=== PATIENT | male | born 1940 | race Caucasian/White ===

== ENCOUNTER → 2023-05-01 06:03 | Outpatient (REF) | payer OTHER, SELFPAY ==
[2023-05-01 10:00] LABS: % Basophils 0.5 % (0-2); % Eosinophils 3.7 % (0-6); % Immature Granulocytes 0.2 % (0-0.5); % Lymphocytes 44.6 % (20.5-51.1); % Monocytes 10.4 % (1.7-9.3); % Neutrophils 40.6 % (42.2-75.2); Absolute Eosinophils 0.2 10^3/uL (0-0.7); Absolute Lymphocytes 2.5 10^3/uL (1.2-3.4); Absolute Monocytes 0.6 10^3/uL (0.1-0.6); Absolute Neutrophils 2.3 10^3/uL (1.4-6.5); Mean Corp Hgb Conc. 34.1 g/dL (33.0-37.0); Mean Corpuscular Hgb 29.4 pg (27.0-31.0); Mean Corpuscular Volume 86.1 fL (80.0-94.0); Mean Platelet Volume 10.9 fL (7.4-10.4); Nucleated Red Blood Cells % 0 % (-); Platelet Count 137 10^3/uL (130-400); Red Blood Cell Count 4.76 10^6/uL (4.70-6.10); Red Cell Dist. Width 13.6 % (11.5-14.5); White Blood Cell Count 5.7 10^3/uL (4.8-10.8)
[2023-05-01 10:15] LABS: ALT (SGPT) 18 U/L (0-50); AST (SGOT) 30 U/L (17-59); Albumin 4.2 g/dl (3.5-5.0); Alkaline Phosphatase 56 U/L (38-126); Blood Urea Nitrogen 22 mg/dl (9-20); Calcium 9.4 mg/dl (8.4-10.2); Carbon Dioxide 31 mmol/L (22-30); Chloride 100 mmol/L (98-107); Glucose 105 mg/dl (70-99); INR 1.05; PT 13.6 Sec (11.4-14.6); Potassium 4.4 mmol/L (3.5-5.1); Sodium 137 mmol/L (135-145); Total Bilirubin 1.1 mg/dl (0.2-1.3); Total Protein 6.9 g/dl (6.3-8.2); eGFR > 60.00
[2023-05-01 10:16] LABS: APTT 32.1 Sec (23.4-35.0)
== END ==
LOC: HWLAB 06:03
PROVIDERS: ATTENDING PHYSICIAN Specialist; FAMILY PHYSICIAN Internal Medicine
DX: Z85.51 Personal history of malignant neoplasm of bladder (principal)
CPT/HCPCS: 36415; 80053; 85025; 85610; 85730

== ENCOUNTER 2023-05-16 06:15 | Day surgery (SDC) | payer OTHER, SELFPAY ==
[2023-05-16] VITALS (16 sets, daily range): BP systolic 111–170; BP diastolic 69–99; BMI 23.3
[2023-05-16] MEDS: NORMOSOL-R 1000 IV (07:00)
[2023-05-16 07:02] LABS: Glucose - Point of Care 116 mg/dl (70-99)
--- NOTE | 2023-05-16 08:45 | W.PN.ADMIT ---
Progress Note - Admit
Progress Note - Admit
pt s/p TURP
admit for CBI
[2023-05-16 09:03] LABS: Glucose - Point of Care 116 mg/dl (70-99)
[2023-05-16 09:38] LABS: Hematocrit 39.1 % (39.0-52.0); Hemoglobin 13.5 g/dL (13.0-18.0); Mean Corp Hgb Conc. 34.5 g/dL (33.0-37.0); Mean Corpuscular Hgb 29.2 pg (27.0-31.0); Mean Corpuscular Volume 84.6 fL (80.0-94.0); Mean Platelet Volume 10.3 fL (7.4-10.4); Platelet Count 128 10^3/uL (130-400); Red Blood Cell Count 4.62 10^6/uL (4.70-6.10); Red Cell Dist. Width 13.6 % (11.5-14.5); White Blood Cell Count 4.8 10^3/uL (4.8-10.8)
[2023-05-16 09:48] LABS: Blood Urea Nitrogen 23 mg/dl (9-20); Calcium 8.3 mg/dl (8.4-10.2); Carbon Dioxide 27 mmol/L (22-30); Chloride 102 mmol/L (98-107); Estimated Creatinine Clearance 86 ml/min; Glucose 119 mg/dl (70-99); Potassium 4.2 mmol/L (3.5-5.1); Sodium 133 mmol/L (135-145); eGFR > 60.00
[2023-05-16] MEDS: LASIX 20 MG IV (10:32)
[2023-05-16] MEDS: NSS with KCL 20 MEQ 1000 IV ×2 (11:07→21:15)
--- NOTE | 2023-05-16 12:06 | PTCARENOTE ---
Pt received from PACU s/p TURP. CBI infusing through [address] coleman cath. Traction to be released at 1500. Coleman bag draining clear urine. VSS. IVF infusing per order. Pt without complaint at this time. Assessment documented.
[2023-05-16] MEDS: GLUCOPHAGE XR EXTENDED RELEASE 500 MG PO (17:18)
[2023-05-16 17:19] LABS: Glucose - Point of Care 161 mg/dl (70-99)
[2023-05-16] MEDS: FLOMAX 0.400000000000000022 MG PO (20:03)
[2023-05-16] MEDS: COLACE 100 MG PO (20:03)
[2023-05-16] MEDS: VIBRAMYCIN 100 MG PO (20:03)
[2023-05-16] MEDS: LIPITOR 40 MG PO (21:16)
[2023-05-17 02:52] VITALS: BP 106/67
[2023-05-17 05:13] LABS: Hemoglobin 13.4 g/dL (13.0-18.0); Mean Corp Hgb Conc. 33.5 g/dL (33.0-37.0); Mean Corpuscular Hgb 28.9 pg (27.0-31.0); Mean Corpuscular Volume 86.2 fL (80.0-94.0); Mean Platelet Volume 10.9 fL (7.4-10.4); Platelet Count 143 10^3/uL (130-400); Red Blood Cell Count 4.64 10^6/uL (4.70-6.10); Red Cell Dist. Width 13.8 % (11.5-14.5); White Blood Cell Count 10.9 10^3/uL (4.8-10.8)
[2023-05-17 05:45] LABS: Blood Urea Nitrogen 17 mg/dl (9-20); Calcium 8.7 mg/dl (8.4-10.2); Carbon Dioxide 25 mmol/L (22-30); Chloride 103 mmol/L (98-107); Estimated Creatinine Clearance 86 ml/min; Glucose 99 mg/dl (70-99); Potassium 3.9 mmol/L (3.5-5.1); Sodium 133 mmol/L (135-145); eGFR > 60.00
[2023-05-17] MEDS: NSS with KCL 20 MEQ 1000 IV (06:27)
--- NOTE | 2023-05-17 07:37 | W.PN.URO.CBU ---
Today's Communication / Plan
-
routine post TURP care
Assessment / Plan
-
s/p TURP
persistent hematuria
UOOB/regular diet
wean cbi as able
plan will be for discharge with coleman and outpt TTOV next week
Diagnosis
-
Date of Service: May 17, 2023
-
Patient Diagnosis:
bph
Post Op Day:
s/p TURP 05/15
Subjective
-
pt with mild cath bother
urine has generally been clear- became bloody when he got UOOB this am
now moderate rate cbi- clear to light pink
labs stable with mild hyponateremia
Objective
-
Vital Signs
Temp Pulse Resp BP Pulse Ox
97.7 F 73 18 106/67 94
05/17/23 02:52 05/17/23 02:52 05/17/23 02:52 05/17/23 02:52 05/17/23 02:52
Intake and Output
05/16/23 05/17/23 05/18/23
06:59 06:59 06:59
Intake Total 3660 / 3660
Output Total 3850 / 3850
Balance -190 / -190
Intake:
Oral fluids 2160 / 2160
IV fluids (Total) 300 / 300
Normosal 300 / 300
IV piggybacks 1200 / 1200
Output:
True Urine Output from CBI 3850 / 3850
Laboratory Results
05/17/23 03:56
05/17/23 03:56
Review of Systems
-
Constitutional: Fatigue
Respiratory: No Symptoms
Cardiac: No Symptoms
Abdomen/GI: No Symptoms
: Other (coleman bother)
Physical Exam
-
General - well developed, well nourished, no acute distress
Abdomen - soft, non-tender
Genitalia - normal- coleman in place
[2023-05-17 07:50] VITALS: BP 136/64
[2023-05-17] MEDS: FLOMAX 0.400000000000000022 MG PO ×2 (08:09→20:04)
[2023-05-17] MEDS: TYLENOL 650 MG PO (08:09)
[2023-05-17] MEDS: VITAMIN C 500 MG PO (08:09)
[2023-05-17] MEDS: PROSCAR 5 MG PO (08:09)
[2023-05-17] MEDS: THERAGRAN 1 TABLET PO (08:09)
[2023-05-17] MEDS: COLACE 100 MG PO (08:10)
[2023-05-17] MEDS: ZESTRIL 10 MG PO (08:10)
[2023-05-17] MEDS: VIBRAMYCIN 100 MG PO ×2 (08:15→20:04)
[2023-05-17 11:40] VITALS: BP 127/71
--- NOTE | 2023-05-17 12:43 | VNURNOTE ---
Home Health Liaison met with patient at 1030 to discuss [facility] nurse visits, schedule and homebound status. Patient is agreeable and understands that visits at home will be 2-3 x per week to assess and teach medical management and catheter care.
[facility] brochure provided with contact information. Patient is aware that [facility] will contact him for start of care in 1-2 days after discharge from .
[facility] referral completed by CM in [facility].
[2023-05-17 15:50] VITALS: BP 154/84
[2023-05-17] MEDS: GLUCOPHAGE XR EXTENDED RELEASE 500 MG PO (17:24)
[2023-05-17] MEDS: LIPITOR 40 MG PO (20:04)
[2023-05-17] MEDS: COLACE PO (20:05)
[2023-05-17 23:35] VITALS: BP 124/82
--- NOTE | 2023-05-18 06:24 | PTCARENOTE ---
Pt tolerating CBI. Urine is clear this morning, no blood, clots or sediment observed. Pt hoping to be discharged today. Denies any pain. Up ad jeanette independently. Up in the chair this morning. Call ivey within reach. Pt calls appropriately.
[2023-05-18 07:15] VITALS: BP 97/57
--- NOTE | 2023-05-18 07:42 | CM ---
met with patient at bedside.patient lives with his in house with 2 pvaan,his bed and bath is on the second level,e amb i and is i with his adl's.patient sees dr tate for his pcp and he uses [facility] in [facility] for his pharmacy.he has
had a vn through [facility] in past but denies ip rehab in past.
patient is sp turp,his cbi is now clear.patient is hoping to be dc home today with coleman catheter.[facility] following patient.
Plan : home with [facility].
--- NOTE | 2023-05-18 08:35 | W.PN.URO.CBU ---
Today's Communication / Plan
-
off cbi
home if urine remains clear
Assessment / Plan
-
s/p TURP
urine now clear
stop cbi and observe until this afternoon- if urine remains clear- home with coleman and removal on monday
Diagnosis
-
Date of Service: May 18, 2023
-
Patient Diagnosis:
bph
Post Op Day:
s/p TURP 05/15
Subjective
-
pt up walking
urine yellow
Objective
-
Vital Signs
Temp Pulse Resp BP Pulse Ox
99.4 F 80 18 97/57 98
05/18/23 07:15 05/18/23 07:15 05/18/23 07:15 05/18/23 07:15 05/18/23 07:15
Intake and Output
05/17/23 05/18/23 05/19/23
06:59 06:59 06:59
Intake Total 3660 / 3660 1320 / 1320
Output Total 3850 / 3850 900 / 900
Balance -190 / -190 420 / 420
Intake:
Oral fluids 2160 / 2160 1320 / 1320
IV fluids (Total) 300 / 300
Normosal 300 / 300
IV piggybacks 1200 / 1200
Output:
True Urine Output from CBI 3850 / 3850 900 / 900
Laboratory Results
05/17/23 03:56
05/17/23 03:56
Physical Exam
-
General - well developed, well nourished, no acute distress
[2023-05-18] MEDS: FLOMAX 0.400000000000000022 MG PO (10:06)
[2023-05-18] MEDS: VIBRAMYCIN 100 MG PO (10:06)
[2023-05-18] MEDS: VITAMIN C 500 MG PO (10:07)
[2023-05-18] MEDS: COLACE 100 MG PO (10:07)
[2023-05-18] MEDS: PROSCAR 5 MG PO (10:07)
[2023-05-18] MEDS: THERAGRAN 1 TABLET PO (10:07)
[2023-05-18] MEDS: ZESTRIL PO (10:08)
[2023-05-18 11:14] VITALS: BP 118/69
== END 2023-05-18 13:54 | disposition home or self-care (01) ==
LOC: SDS 06:15
PROVIDERS: ATTENDING PHYSICIAN Specialist
DX: N40.1 Benign prostatic hyperplasia with lower urinary tract symptoms (principal); Z85.51 Personal history of malignant neoplasm of bladder; Z95.5 Presence of coronary angioplasty implant and graft
CPT/HCPCS: 52601; 88305; 80048; 82962; 85027; 88344

== ENCOUNTER → 2023-06-28 06:01 | Outpatient (REF) | payer OTHER, SELFPAY ==
[2023-06-28 09:57] LABS: % Basophils 0.8 % (0-2); % Eosinophils 3.5 % (0-6); % Immature Granulocytes 0.3 % (0-0.5); % Lymphocytes 45.6 % (20.5-51.1); % Monocytes 10.2 % (1.7-9.3); % Neutrophils 39.6 % (42.2-75.2); Absolute Basophils 0.1 10^3/uL (0-0.2); Absolute Eosinophils 0.3 10^3/uL (0-0.7); Absolute Lymphocytes 3.2 10^3/uL (1.2-3.4); Absolute Monocytes 0.7 10^3/uL (0.1-0.6); Absolute Neutrophils 2.8 10^3/uL (1.4-6.5); Hemoglobin 14.1 g/dL (13.0-18.0); Mean Corp Hgb Conc. 33.6 g/dL (33.0-37.0); Mean Corpuscular Hgb 28.8 pg (27.0-31.0); Mean Corpuscular Volume 85.7 fL (80.0-94.0); Mean Platelet Volume 10.3 fL (7.4-10.4); Nucleated Red Blood Cells % 0 % (-); Platelet Count 179 10^3/uL (130-400); Red Cell Dist. Width 13.5 % (11.5-14.5); White Blood Cell Count 7.1 10^3/uL (4.8-10.8)
[2023-06-28 11:05] LABS: Glycohemoglobin (HgbA1c) 6.2 % (4.0-5.6)
[2023-06-28 12:36] LABS: ALT (SGPT) 14 U/L (0-50); AST (SGOT) 26 U/L (17-59); Albumin 4.1 g/dl (3.5-5.0); Alkaline Phosphatase 67 U/L (38-126); Blood Urea Nitrogen 21 mg/dl (9-20); Calcium 9.9 mg/dl (8.4-10.2); Carbon Dioxide 29 mmol/L (22-30); Chloride 102 mmol/L (98-107); Direct Bilirubin 0.3 mg/dl (0.0-0.4); Glucose 108 mg/dl (70-99); HDL Cholesterol 49 mg/dl; LDL Cholesterol, Calculated 72 mg/dl; Potassium 4.7 mmol/L (3.5-5.1); Sodium 138 mmol/L (135-145); Total Bilirubin 0.7 mg/dl (0.2-1.3); Total Cholesterol 142 mg/dl (50-199); Triglyceride 107 mg/dl (10-149); Very Low Density Lipoprotein 21 mg/dl (0-30); eGFR > 60.00
[2023-06-28 12:37] LABS: Microalbumin, Random Urine 18.8 mg/dl (0.6-1.7); Microalbumin/creatinine Ratio 200.4 mg/g
[2023-06-29 20:57] LABS: Keppra (Levetiracetam) 10 ug/mL (10-40)
== END ==
LOC: HWLAB 06:01
PROVIDERS: ATTENDING PHYSICIAN Internal Medicine Cardiovascular Disease; FAMILY PHYSICIAN Internal Medicine; OTHER PHYSICIAN Neurological Surgery; REFERRING PHYSICIAN Internal Medicine
DX: E11.21 Type 2 diabetes mellitus with diabetic nephropathy (principal); K63.5 Polyp of colon; E78.2 Mixed hyperlipidemia
CPT/HCPCS: 36415; 80053; 80061; 80177; 82043; 82248; 82570; 83036; 85025

== ENCOUNTER → 2023-09-18 08:30 | Outpatient (REF) | payer OTHER, SELFPAY ==
--- NOTE | 2023-09-19 15:14 | EEG.RPT ---
Electroencephalogram Report
Recording
Date of EE09/18/23
Type of EEG: Routine
Length of EEG recordin hours 15 minutes
Done with Video Recording: No
Patient Status: Outpatient
Recording Conditions: Awake, Drowsy and Asleep
Hyperventilation Performed: No
Photic Stimulation Performed: No
Hand Dominance: Unknown
Report
24 HOUR AMBULATORY EEG SUMMARY
24 HOUR EEG CONCLUSION(S):
Unremarkable EEG for age
CLINICAL CORRELATION:
A normal EEG may not rule out a diagnosis of epilepsy.
The patient�s logs did not indicate clinical symptoms.
Clinical correlation is advised.
METHODS:
A 21 channel digitized electroencephalogram (EEG) was initiated in the Clinical Neurophysiology Laboratory. The patient wore the device outside of the laboratory and returned after 24 hours for electrode and recorder removal.� The 10/20
international system of electrode placement was used with bipolar electrode montage recorded.� ECG was monitored. Study lasted 24 hours 15 minutes.
IMPRESSION(S):
Quality
Good
Background
During awake state background showed theta and alpha frequencies
Normal posterior dominant rhythm seen of 9 Hz, attenuates with eye opening
No significant asymmetries of background activity noted.
Sleep
Drowsiness was suggested by slowing of the background rhythms
Stage I sleep was recorded
Stage 2 sleep was recorded
REM sleep recorded
ECG:
Normal sinus rhythm
Abnormalities
No significant abnormalities, no seizures or interictal epileptiform discharges seen
== END ==
LOC: EEG 08:30
PROVIDERS: ATTENDING PHYSICIAN Psychiatry & Neurology Neurology; FAMILY PHYSICIAN Internal Medicine
DX: S06.5X1A Traumatic subdural hemorrhage with loss of consciousness of 30 minutes or less, initial encounter (principal)
CPT/HCPCS: 95708

== ENCOUNTER → 2023-12-25 06:52 | Outpatient (REF) | payer OTHER, SELFPAY ==
[2023-12-25 09:55] LABS: % Basophils 0.8 % (0-2); % Eosinophils 2.5 % (0-6); % Immature Granulocytes 0.3 % (0-0.5); % Lymphocytes 46.2 % (20.5-51.1); % Neutrophils 39.2 % (42.2-75.2); Absolute Basophils 0.1 10^3/uL (0-0.2); Absolute Eosinophils 0.2 10^3/uL (0-0.7); Absolute Monocytes 0.7 10^3/uL (0.1-0.6); Absolute Neutrophils 2.5 10^3/uL (1.4-6.5); Hematocrit 43.2 % (39.0-52.0); Hemoglobin 14.4 g/dL (13.0-18.0); Mean Corp Hgb Conc. 33.3 g/dL (33.0-37.0); Mean Corpuscular Hgb 28.3 pg (27.0-31.0); Mean Corpuscular Volume 84.9 fL (80.0-94.0); Mean Platelet Volume 10.2 fL (7.4-10.4); Nucleated Red Blood Cells % 0 % (-); Platelet Count 156 10^3/uL (130-400); Red Blood Cell Count 5.09 10^6/uL (4.70-6.10); White Blood Cell Count 6.4 10^3/uL (4.8-10.8)
[2023-12-25 10:28] LABS: ALT (SGPT) 19 U/L (0-50); AST (SGOT) 30 U/L (17-59); Albumin 4.4 g/dl (3.5-5.0); Alkaline Phosphatase 57 U/L (38-126); Blood Urea Nitrogen 26 mg/dl (9-20); Calcium 10.1 mg/dl (8.4-10.2); Carbon Dioxide 30 mmol/L (22-30); Chloride 101 mmol/L (98-107); Direct Bilirubin 0.2 mg/dl (0.0-0.4); Glucose 120 mg/dl (70-99); HDL Cholesterol 47 mg/dl; LDL Cholesterol, Calculated 85 mg/dl; Potassium 4.4 mmol/L (3.5-5.1); Sodium 140 mmol/L (135-145); Total Cholesterol 155 mg/dl (50-199); Total Protein 7.2 g/dl (6.3-8.2); Triglyceride 115 mg/dl (10-149); Very Low Density Lipoprotein 23 mg/dl (0-30); eGFR > 60.00
== END ==
LOC: HWLAB 06:52
PROVIDERS: ATTENDING PHYSICIAN Internal Medicine Cardiovascular Disease; FAMILY PHYSICIAN Internal Medicine
DX: I10 Essential (primary) hypertension (principal); E11.21 Type 2 diabetes mellitus with diabetic nephropathy; K63.5 Polyp of colon; E78.2 Mixed hyperlipidemia; E78.5 Hyperlipidemia, unspecified; E11.9 Type 2 diabetes mellitus without complications
CPT/HCPCS: 36415; 80053; 80061; 82248; 83036; 85025

== ENCOUNTER → 2024-06-24 06:11 | Outpatient (REF) | payer OTHER, SELFPAY ==
[2024-06-24 09:24] LABS: % Basophils 0.9 % (0-2); % Eosinophils 4.3 % (0-6); % Immature Granulocytes 0.2 % (0-0.5); % Lymphocytes 37.6 % (20.5-51.1); % Monocytes 11.3 % (1.7-9.3); % Neutrophils 45.7 % (42.2-75.2); Absolute Basophils 0.1 10^3/uL (0-0.2); Absolute Eosinophils 0.3 10^3/uL (0-0.7); Absolute Lymphocytes 2.2 10^3/uL (1.2-3.4); Absolute Monocytes 0.7 10^3/uL (0.1-0.6); Absolute Neutrophils 2.7 10^3/uL (1.4-6.5); Hematocrit 42.6 % (39.0-52.0); Hemoglobin 14.2 g/dL (13.0-18.0); Mean Corp Hgb Conc. 33.3 g/dL (33.0-37.0); Mean Corpuscular Volume 86.9 fL (80.0-94.0); Mean Platelet Volume 10.9 fL (7.4-10.4); Nucleated Red Blood Cells % 0 % (-); Platelet Count 151 10^3/uL (130-400); Red Cell Dist. Width 13.1 % (11.5-14.5); White Blood Cell Count 5.9 10^3/uL (4.8-10.8)
[2024-06-24 09:58] LABS: ALT (SGPT) 22 U/L (0-50); AST (SGOT) 31 U/L (17-59); Alkaline Phosphatase 71 U/L (38-126); Blood Urea Nitrogen 24 mg/dl (9-20); Calcium 9.9 mg/dl (8.4-10.2); Carbon Dioxide 29 mmol/L (22-30); Chloride 105 mmol/L (98-107); Direct Bilirubin 0.3 mg/dl (0.0-0.4); Glucose 106 mg/dl (70-99); HDL Cholesterol 41 mg/dl; LDL Cholesterol, Calculated 62 mg/dl; Potassium 4.4 mmol/L (3.5-5.1); Sodium 140 mmol/L (135-145); Total Bilirubin 0.9 mg/dl (0.2-1.3); Total Cholesterol 119 mg/dl (50-199); Total Protein 6.8 g/dl (6.3-8.2); Triglyceride 81 mg/dl (10-149); Very Low Density Lipoprotein 16 mg/dl (0-30); eGFR > 60.00
[2024-06-24 10:19] LABS: Microalbumin, Random Urine 3.1 mg/dl (0.6-1.7); Microalbumin/creatinine Ratio 105.4 mg/g
[2024-06-24 12:18] LABS: Glycohemoglobin (HgbA1c) 6.1 % (4.0-5.6)
== END ==
LOC: HWLAB 06:11
PROVIDERS: ATTENDING PHYSICIAN Internal Medicine
DX: E11.21 Type 2 diabetes mellitus with diabetic nephropathy (principal); K63.5 Polyp of colon; E78.2 Mixed hyperlipidemia
CPT/HCPCS: 36415; 80053; 80061; 82043; 82248; 82570; 83036; 85025

== ENCOUNTER → 2024-12-30 07:35 | Outpatient (REF) | payer OTHER, SELFPAY ==
[2024-12-30 09:28] LABS: ALT (SGPT) 25 U/L (0-50); AST (SGOT) 31 U/L (17-59); Albumin 4.3 g/dl (3.5-5.0); Alkaline Phosphatase 69 U/L (38-126); Blood Urea Nitrogen 25 mg/dl (9-20); Calcium 9.5 mg/dl (8.4-10.2); Carbon Dioxide 30 mmol/L (22-30); Chloride 102 mmol/L (98-107); Glucose 116 mg/dl (70-99); HDL Cholesterol 50 mg/dl; LDL Cholesterol, Calculated 92 mg/dl; Potassium 4.5 mmol/L (3.5-5.1); Sodium 136 mmol/L (135-145); Total Protein 7.3 g/dl (6.3-8.2); Very Low Density Lipoprotein 22 mg/dl (0-30); eGFR > 60.00
[2024-12-30 11:37] LABS: Glycohemoglobin (HgbA1c) 6.3 % (4.0-5.9)
== END ==
LOC: HWLAB 07:35
PROVIDERS: ATTENDING PHYSICIAN Internal Medicine
DX: E11.21 Type 2 diabetes mellitus with diabetic nephropathy (principal); E78.5 Hyperlipidemia, unspecified
CPT/HCPCS: 36415; 80053; 80061; 82248; 83036